=== PATIENT | female | born 1980 | race African-American/Black ===

== ENCOUNTER 2017-01-24 15:43 | Emergency (ER) | payer SELFPAY ==
[~2017-01-24] VITALS: Ht 160 cm; Wt 50.0 kg
[2017-01-24 15:52] VITALS: BP 101/74
[2017-01-24] MEDS ORDERED: ACETAMINOPHEN 325MG TABLET PO ONE (20:15)
== END 2017-01-24 21:06 | disposition home or self-care (01) ==
LOC: ER 19:59
DX: M79.1 Myalgia (principal); Z53.21 Procedure and treatment not carried out due to patient leaving prior to being seen by health care provider
CPT/HCPCS: 99282

== ENCOUNTER 2017-01-25 07:18 | Emergency (ER) | payer MEDICAID ==
[~2017-01-25] VITALS: Ht 165.1 cm; Wt 79.0 kg
[2017-01-25 08:22] LABS: GLUCOSE URINE NEGATIVE (NEGATIVE); KETONES URINE NEGATIVE (NEGATIVE); LEUKOCYTE ESTERASE URINE NEGATIVE (NEGATIVE); NITRITE URINE NEGATIVE (NEGATIVE); OCCULT BLOOD URINE NEGATIVE (NEGATIVE); PROTEIN URINE NEGATIVE (NEGATIVE); SPECIFIC GRAVITY URINE 1.028 (1.005-1.030)
[2017-01-25 08:34] LABS: *BARBITURATES SCREEN URINE NEGATIVE (NEGATIVE); *BENZODIAZEPINES SCREEN URINE NEGATIVE (NEGATIVE); *COCAINE SCREEN URINE NEGATIVE (NEGATIVE); METHADONE URINE SCREEN NEGATIVE (NEGATIVE); OPIATES URINE SCREEN NEGATIVE (NEGATIVE); PHENCYCLIDINE URINE SCREEN NEGATIVE (NEGATIVE)
[2017-01-25 08:35] LABS: *AMPHETAMINES SCREEN URINE PRESUMTIVE POSITIVE (NEGATIVE); CANNABINOID URINE SCREEN PRESUMTIVE POSITIVE (NEGATIVE)
[2017-01-25 08:52] LABS: COLOR URINE DARK YELLOW (YELLOW)
[2017-01-25 08:53] LABS: CLARITY URINE CLEAR (CLEAR)
[2017-01-25] MEDS ORDERED: OLANZAPINE 10 MG/VIAL IM STA (12:07)
[2017-01-25 12:24] LABS: BASOPHILS % 0.6 % (0.0-2.0); EOSINOPHILS % 1.3 % (0.0-5.0); HEMATOCRIT. 34.2 % (36.0-48.0); HEMOGLOBIN. 11.4 g/dL (12.0-16.0); LYMPHOCYTES % 28.6 % (20.0-50.0); MEAN CORPUSCULAR HEMOGLOBIN 31.7 pg (28.0-32.0); MEAN PLATELET VOLUME 8.3 fl (7.4-10.4); MONOCYTES % 8.7 % (2.0-8.0); NEUTROPHILS % 60.8 % (40.0-76.0); PLATELET 204 x1000/uL (130-400); RED CELL DISTRIBUTION WIDTH 13.3 % (11.6-14.6)
[2017-01-25 12:38] LABS: CARBON DIOXIDE 29 mEq/L (21-32); CHLORIDE 106 mEq/L (98-107); ETHANOL BLOOD < 10 mg/dL
[2017-01-25 22:15] VITALS: BP 96/62
== END 2017-01-25 22:37 | disposition home or self-care (01) ==
LOC: ER 09:29
DX: F19.10 Other psychoactive substance abuse, uncomplicated (principal); F17.200 Nicotine dependence, unspecified, uncomplicated; Z90.10 Acquired absence of unspecified breast and nipple
CPT/HCPCS: 36415; 70450; 80053; 80305; 81003; 81025; 85025; 96372; 99285; G0482; J3490

== ENCOUNTER 2017-12-27 11:09 | Emergency (ER) | payer MEDICAID ==
[~2017-12-27] VITALS: Ht 157.5 cm; Wt 64.0 kg
[2017-12-27 13:06] VITALS: BP 115/88
== END 2017-12-27 13:09 | disposition home or self-care (01) ==
LOC: ER 13:05
DX: B35.3 Tinea pedis (principal); R30.0 Dysuria; R35.0 Frequency of micturition
CPT/HCPCS: 99283